=== PATIENT | male | born 1950 | race African-American/Black ===

== ENCOUNTER 2018-01-25 15:30 | Emergency (ER) | payer MEDICARE, OTHER ==
[~2018-01-25 15:30] MED LIST: ISOVUE-370 76%-LOCM 1 ML ONE
[2018-01-25 16:05] LABS: #Lymphocytes 0.7 thou/uL (1.20-3.40); #Monocytes 0.4 thou/uL (0.11-0.59); #Neutrophils 4.7 thou/uL (1.40-6.50); %Basophils 0.5 % (0.0-1.0); %Eosinophils 0.7 % (0.0-10.0); %Lymphocytes 11.3 % (21.0-51.0); %Monocytes 6.4 % (0.0-10.0); Hemoglobin 13.2 g/dL (14.0-18.0); Mean Corpuscular HGB CONC 35.6 g/dL (32.0-36.0); Mean Corpuscular Hemoglobin 36.3 pg (27.0-31.0); Mean Platelet Volume 7.4 fL (7.4-10.4); Platelet Count 197 thou/uL (130-400); RBC Distribution Width 12.3 % (11.5-14.5); Red Blood Cell (RBC) Count 3.63 mill/uL (4.70-6.10); White Blood Cell (WBC) Count 5.8 thou/uL (4.8-10.8)
[2018-01-25] MEDS ORDERED: Acetaminophen 500 MG TAB ONE ×2 (16:20)
[2018-01-25 16:28] LABS: ALT (SGPT) 14 U/L (8-55); AST (SGOT) 39 U/L (5-34); Albumin 3.7 g/dL (3.4-4.8); Alkaline Phosphatase 68 U/L (40-150); Anion Gap 17 mmol/L (10-20); BUN (Urea Nitrogen) 9 mg/dL (8.4-25.7); Bilirubin, Total 1.3 mg/dL (0.2-1.2); CK (CPK) 373 U/L (30-200); Calc. Creatinine Clearance 0 mL/min (70-130); Carbon Dioxide 19 mmol/L (23-31); Chloride 104 mmol/L (98-107); Estimated GFR-MDRD Greater than 90; Globulin 2.3 g/dL (2.4-3.5); Glucose 82 mg/dL (80-115); Lipase 21 U/L (8-78); Potassium 3.4 mmol/L (3.5-5.1); Sodium 137 mmol/L (136-145)
[2018-01-25 16:30] LABS: CKMB 2.8 ng/mL (0-6.6); Troponin I Less than 0.010 ng/mL (< 0.028)
--- NOTE | 2018-01-25 16:30 | RAD ---
RADIOGRAPH CHEST 1 VIEW: HISTORY: A 67-year-old male, status post syncope. FINDINGS: The thoracic aorta is tortuous and ectatic. There is no evidence of air space density, pneumothorax, or pulmonary edema. The lateral costophrenic angles are sharp. The cardiac size is normal. IMPRESSION: 1) No acute pulmonary findings. 2) Ectasia of thoracic aorta. jn [] POS: [facility]
--- NOTE | 2018-01-25 17:55 | RAD ---
RIGHT SHOULDER THREE VIEW SERIES: INDICATIONS: Post traumatic pain. FINDINGS: There is osteoarthritis without fracture or dislocation identified. IMPRESSION: No acute osseous abnormality of the right shoulder. POS: [facility]
--- NOTE | 2018-01-25 18:07 | CT ---
CT HEAD NONCONTRAST: INDICATIONS: Syncope. FINDINGS: No intracranial hemorrhage, mass effect, or midline shift. Mild chronic microvascular ischemic disea se is present. There is no acute fluid level of the imaged paranasal sinuses. IMPRESSION: 1. No acute intracranial hemorrhage or mass effect. 2. Mild chronic ischemic disease. POS: [facility]
--- NOTE | 2018-01-25 18:12 | CT ---
CTA THORAX WITH CONTRAST: DATE: 01/25/2018 TIME: 5:42 p.m. (Computed Tomographic Angiography, chest(noncoronary) with contrast material, and image post processi ng) (PE protocol) HISTORY: A 67-year-old male with elevated D-dimer and syncope. TECHNIQUE: IV injection of iodinated contrast: Isovue-370 100 mL. Scan acquisition timing attempted to coincide with iodinated contrast bolus reaching maximal density in pulmonary arteries. 3D MIP reconstructions. FINDINGS: There is a 6 x 4 x 5 mm noncalcified pulmonary nodule at the right middle lobe, close to the anterola teral pleural surface, unchanged since 03/26/2010, and therefore benign. No pulmonary edema, air spa ce opacity, bronchiectasis, pleural effusion, or pneumothorax. Severe DJD at the bilateral sternocla vicular joints. Trachea and major bronchi are patent and clear. Ectasia and tortuosity of the thora cic aorta without aneurysm. No cardiomegaly, pericardial effusion, mediastinal lymphadenopathy, or h ilar lymphadenopathy. No pulmonary thromboembolism. IMPRESSION: 1. No pulmonary thromboembolism. 2. No active disease. jn[] POS: [facility]
== END 2018-01-25 18:26 | disposition home or self-care (01) ==
LOC: ERS 15:30
DX: S49.91XA Unspecified injury of right shoulder and upper arm, initial encounter (principal); R55 Syncope and collapse; I10 Essential (primary) hypertension; F17.220 Nicotine dependence, chewing tobacco, uncomplicated; Z79.891 Long term (current) use of opiate analgesic; Z79.899 Other long term (current) drug therapy; Z79.82 Long term (current) use of aspirin; W19.XXXA Unspecified fall, initial encounter
CPT/HCPCS: 70450; 71045; 71275; 80053; 82553; 83690; 83880; 84484; 85025; 85379; 93005

== ENCOUNTER 2018-06-23 15:59 | Emergency (ER) | payer MEDICARE ==
[2018-06-23 16:49] LABS: #Basophils 0.1 thou/uL (0.0-0.2); #Eosinphils 0.2 thou/uL (0.0-0.7); #Lymphocytes 1.4 thou/uL (1.20-3.40); #Monocytes 0.3 thou/uL (0.11-0.59); #Neutrophils 5.4 thou/uL (1.40-6.50); %Basophils 1.1 % (0.0-1.0); %Eosinophils 2.3 % (0.0-10.0); %Lymphocytes 18.5 % (21.0-51.0); %Monocytes 4.1 % (0.0-10.0); %Neutrophils 74.1 % (42.0-75.0); Hemoglobin 15.3 g/dL (14.0-18.0); Mean Corpuscular HGB CONC 34.1 g/dL (32.0-36.0); Mean Corpuscular Hemoglobin 34.2 pg (27.0-31.0); Mean Platelet Volume 7.9 fL (7.4-10.4); Platelet Count 241 thou/uL (130-400); RBC Distribution Width 12.8 % (11.5-14.5); Red Blood Cell (RBC) Count 4.46 mill/uL (4.70-6.10); White Blood Cell (WBC) Count 7.3 thou/uL (4.8-10.8)
[2018-06-23 17:16] LABS: ALT (SGPT) 10 U/L (8-55); AST (SGOT) 29 U/L (5-34); Albumin 4.5 g/dL (3.4-4.8); Alkaline Phosphatase 59 U/L (40-150); BUN (Urea Nitrogen) 18 mg/dL (8.4-25.7); Bilirubin, Total 0.5 mg/dL (0.2-1.2); CK (CPK) 190 U/L (30-200); Calc. Creatinine Clearance 0 mL/min (70-130); Calcium 8.6 mg/dL (7.8-10.44); Carbon Dioxide 18 mmol/L (23-31); Chloride 104 mmol/L (98-107); Estimated GFR-MDRD 80; Globulin 2.8 g/dL (2.4-3.5); Glucose 132 mg/dL (80-115); Potassium 3.4 mmol/L (3.5-5.1); Protein, Total 7.3 g/dL (5.8-8.1); Sodium 138 mmol/L (136-145)
[2018-06-23 17:30] LABS: Anion Gap 19 mmol/L (10-20)
[2018-06-23 17:34] LABS: Acetaminophen Less than 6.0 mcg/mL (10.0-30.0); Alcohol 157 mg/dL (Less than 10); Salicylate Less than 8.0 mg/dL (15.0-30.0)
--- NOTE | 2018-06-23 17:37 | RAD ---
PORTABLE AP CHEST X-RAY 06/23/18 HISTORY: Hypoglycemia and chest pain. COMPARISON: 01/25/18. FINDINGS: The cardiac silhouette and pulmonary vasculature are within normal limits. The lungs are clear. There is suggested lucency within the left upper lung zone, but this is probably related to patient rotati on. There were no findings to suggest emphysematous changes on CTA of the chest on 01/25/18 and this is probably projectional. No other findings. Chest is overall stable from prior exam. IMPRESSION: No acute cardiopulmonary process. POS: [facility]
[2018-06-23 17:44] LABS: Bilirubin Negative (Negative); Blood, Urine Negative (Negative); Clarity CLEAR (Clear); Glucose, Urine (Dipstick) 250 mg/dL (Negative); Leukocyte Negative (Negative); Nitrite Negative (Negative); Protein, Urine (Dipstick) Negative (Neg-Trace); Specific Gravity, Urine 1.016 (1.002-1.036); Urobilinogen 0.2 mg/dL (0.2-1.0)
[2018-06-23 20:33] LABS: Lactic Acid 3.4 mmol/L (0.5-2.2)
== END 2018-06-23 20:43 | disposition home or self-care (01) ==
LOC: ERS 15:59
DX: E16.2 Hypoglycemia, unspecified (principal); F32.9 Major depressive disorder, single episode, unspecified; I10 Essential (primary) hypertension; F17.220 Nicotine dependence, chewing tobacco, uncomplicated; Z79.82 Long term (current) use of aspirin; Z79.899 Other long term (current) drug therapy
CPT/HCPCS: 36415; 36416; 71045; 80053; 80307; 81003; 82550; 83605; 84484; 85025; 93005; 94760

== ENCOUNTER 2018-07-13 21:09 | Emergency (ER) | payer MEDICARE ==
[2018-07-13] MEDS ORDERED: Ketorolac Tromethamine 30 MG/ML VIAL ONE (21:22)
[2018-07-13] MEDS ORDERED: Metoclopramide HCl 10 MG/2 ML VIAL ONE (21:22)
[2018-07-13] MEDS ORDERED: Dexamethasone 10 MG/ML VIAL ONE (21:22)
[2018-07-13 22:13] LABS: #Basophils 0.1 thou/uL (0.0-0.2); #Lymphocytes 0.7 thou/uL (1.20-3.40); #Monocytes 0.9 thou/uL (0.11-0.59); #Neutrophils 4.7 thou/uL (1.40-6.50); %Eosinophils 0.4 % (0.0-10.0); %Lymphocytes 10.4 % (21.0-51.0); %Monocytes 14.2 % (0.0-10.0); Hemoglobin 12.7 g/dL (14.0-18.0); Mean Corpuscular HGB CONC 34.5 g/dL (32.0-36.0); Mean Corpuscular Hemoglobin 34.6 pg (27.0-31.0); Mean Platelet Volume 9.3 fL (7.4-10.4); Platelet Count 165 thou/uL (130-400); RBC Distribution Width 12.4 % (11.5-14.5); Red Blood Cell (RBC) Count 3.66 mill/uL (4.70-6.10); White Blood Cell (WBC) Count 6.4 thou/uL (4.8-10.8)
[2018-07-13 22:29] LABS: Anion Gap 17 mmol/L (10-20); BUN (Urea Nitrogen) 8 mg/dL (8.4-25.7); CK (CPK) 102 U/L (30-200); Calc. Creatinine Clearance 0 mL/min (70-130); Calcium 9.4 mg/dL (7.8-10.44); Carbon Dioxide 19 mmol/L (23-31); Chloride 99 mmol/L (98-107); Estimated GFR-MDRD Greater than 90; Glucose 96 mg/dL (80-115); Sodium 132 mmol/L (136-145)
[2018-07-13] MEDS ORDERED: Potassium Chloride 20 MEQ TAB ONE (23:47)
== END 2018-07-13 23:46 | disposition home or self-care (01) ==
LOC: ERS 21:09
DX: S16.1XXA Strain of muscle, fascia and tendon at neck level, initial encounter (principal); E87.6 Hypokalemia; I10 Essential (primary) hypertension; F17.220 Nicotine dependence, chewing tobacco, uncomplicated; X58.XXXA Exposure to other specified factors, initial encounter
CPT/HCPCS: 80048; 82550; 85025; 96374; 96375; J1100; J1885; J2765

== ENCOUNTER 2018-07-28 09:00 | Outpatient (CLI) | payer MEDICARE ==
--- NOTE | 2018-07-28 10:13 | ULT ---
ULTRASOUND ABDOMEN: History: Right upper quadrant pain. FINDINGS: The liver, spleen, gallbladder, kidneys, and visualized portions of the pancreas and IVC are unremark able. No free fluid is seen. The common duct measures 4 mm. IMPRESSION: No significant abnormalities are identified. POS: [facility]
== END 2018-07-28 09:01 | disposition home or self-care (01) ==
LOC: BICULT 09:00
PROVIDERS: ATTEND Family Medicine
DX: R10.11 Right upper quadrant pain (principal)
CPT/HCPCS: 76700

== ENCOUNTER 2018-10-26 10:26 | Inpatient (IN) | payer MEDICARE ==
[2018-10-26 11:06] LABS: Hemoglobin 12.2 g/dL (14.0-18.0); Mean Corpuscular Hemoglobin 33.6 pg (27.0-31.0); Red Blood Cell (RBC) Count 3.62 mill/uL (4.70-6.10); White Blood Cell (WBC) Count 6.4 thou/uL (4.8-10.8)
[2018-10-26 11:07] LABS: #Lymphocytes 0.7 thou/uL (1.20-3.40); #Monocytes 0.6 thou/uL (0.11-0.59); %Basophils 0.5 % (0.0-1.0); %Eosinophils 0.4 % (0.0-10.0); %Lymphocytes 11.6 % (21.0-51.0); %Monocytes 9.4 % (0.0-10.0); %Neutrophils 78.1 % (42.0-75.0); Mean Corpuscular HGB CONC 32.6 g/dL (32.0-36.0); Platelet Count 221 thou/uL (130-400)
[2018-10-26 11:30] LABS: ALT (SGPT) Less than 7 U/L (8-55); AST (SGOT) 11 U/L (5-34); Albumin 3.7 g/dL (3.4-4.8); Alkaline Phosphatase 56 U/L (40-150); Anion Gap 17 mmol/L (10-20); BUN (Urea Nitrogen) 8 mg/dL (8.4-25.7); Bilirubin, Total 0.9 mg/dL (0.2-1.2); Calc. Creatinine Clearance 0 mL/min (70-130); Calcium 9.5 mg/dL (7.8-10.44); Carbon Dioxide 24 mmol/L (23-31); Chloride 96 mmol/L (98-107); Estimated GFR-MDRD Greater than 90; Globulin 3.2 g/dL (2.4-3.5); Glucose 97 mg/dL (80-115); Potassium 3.6 mmol/L (3.5-5.1); Protein, Total 6.9 g/dL (5.8-8.1); Sodium 133 mmol/L (136-145)
--- NOTE | 2018-10-26 11:31 | RAD ---
LEFT HAND 3 VIEWS: HISTORY: Patient fell on hand with swelling. FINDINGS: There are moderate osteoarthritic changes of the hand. These changes are particularly pronounced at the 1st carpometacarpal joint space and changes involving the proximal and distal interphalangeal magdalena nts. Osteophytic changes of the metacarpal heads are also seen. There is soft tissue swelling on th e dorsum of the hand. I do not see any definite fractures. IMPRESSION: Arthritic changes of the hand. No acute injury. POS: [facility]
--- NOTE | 2018-10-26 13:23 | CT ---
CT OF THE LEFT WRIST WITHOUT CONTRAST: INDICATION: History of fall with left wrist pain. COMPARISON: Left hand radiograph dated 10/26/2018. FINDINGS: No displaced fracture is demonstrated. There is moderate degenerative change at the DRUJ. There is se ruslan degenerative change at the first CMC joint. Carpal alignment appears within normal limits. There is diffuse osteopenia. IMPRESSION: 1. No definite acute fracture demonstrated. 2. Moderate distal radial ulnar joint and severe first carpometacarpal osteoarthrosis. Transcribed Date/Time: 10/26/2018 1:28 PM
[2018-10-26] MEDS ORDERED: Ketorolac Tromethamine 60 MG/2 ML VIAL ONE (13:30)
[2018-10-26] MEDS ORDERED: Lidocaine 1% PF 5 ML VIAL ONE (13:47)
[2018-10-26] MEDS ORDERED: ePHEDrine 50 MG/ML VIAL ONE (13:47)
[2018-10-26] MEDS ORDERED: Ondansetron PF 4 MG/2 ML Vial ONE (13:47)
[2018-10-26] MEDS ORDERED: PHENYLEPHRINE-NS 100 MCG/ML 10 ML SYRINGE ONE (13:47)
[2018-10-26] MEDS ORDERED: PROPOFOL 200 MG/20 ML VIAL ONE (13:47)
--- NOTE | 2018-10-26 15:41 | RAD ---
UPRIGHT PORTABLE CHEST: HISTORY: Preoperative evaluation. COMPARISON: 06/23/2018. FINDINGS: Heart size is normal. The lungs are clear. IMPRESSION: No acute intrathoracic disease. Atherosclerosis of the aorta with ectasia. POS: [facility]
[2018-10-26] MEDS ORDERED: Fentanyl 100 MCG/2 ML VIAL ONE (21:41)
[2018-10-26] MEDS ORDERED: Sodium Chloride 0.9% 30 ML ONE (21:42)
[2018-10-26] MEDS ORDERED: Bupivacaine PF 0.5% 30 ML VIAL ONE (21:42)
[2018-10-26] MEDS ORDERED: Bacitracin Zinc Ointment 30 gm TUBE ONE (21:43)
--- NOTE | 2018-10-26 22:45 | HP ---
CHIEF COMPLAINT: Left hand pain and swelling. HISTORY OF PRESENT ILLNESS: Bulmaro is a 68-year-old right-handed male, who was presented to [facility] Emergency room earlier this afternoon for swelling of the left hand with discomfort, which has been present and progressive since of last week. He has had no fevers, chills, nausea, vomiting. He also denies any constitutional symptoms. Pain has been progressive, but he does have a history of gout, but this seems to be a little bit different from his gout according to the patient. Laboratory evaluation performed by demonstrates a uric acid of 7.3, C-reactive protein 25.41, and a sedimentation rate of 37. White blood cell count was normal at 6.4. He has been able to use the hand effectively and there is a questionable history of fall, but this does not appear to be a sentinel event for the patient and his pain had more of an insidious onset, been present and progressive since onset. PAST MEDICAL HISTORY: Gout and hypertension. MEDICATIONS: Unknown presently. He does take medication for blood pressure. PHYSICAL EXAMINATION: VITAL SIGNS: Temperature is 98, blood pressure 158/106, pulse 84, respiratory rate 20, nonlabored, O2 saturation 100% on room air. GENERAL: He is alert and oriented to person, place, time, and situation, grossly nonfocal. He is appropriate and conversive with examiner. He does not appear toxic, appears quite comfortable. He has only had Toradol for pain. HEENT: Head is normocephalic and atraumatic. Pupils are equal, round, and reactive to light. Oropharynx is benign. NECK: Supple. CHEST: Clear to auscultation. HEART: Regular rate and rhythm. ABDOMEN: Benign. EXTREMITIES: Visual inspection of left upper extremity demonstrates him to have a fluctuance dorsal of the hand extending behind the metacarpals, carpals, and just past the distal radius by palpation. It is diffuse and fluctuant. He also has some fullness on the palmar side, but his digital excursion is limited by pain. Flexion and extension also limited by pain with poor tolerance for palpation. There are no breaks in the skin. Radial pulse is barely palpable, but he has good sensation in all digits of the extremity. The fullness is impressive dorsally and it is quite fluctuant. IMAGING STUDIES: Three-view of left hand demonstrates soft tissue swelling as noted and CT examination also suggests fullness with possible fluid collection just dorsal to the distal radioulnar joint. I see no air-fluid levels, I see no air pockets or soft tissue gasses. IMPRESSION: Suspect left dorsal fluctuant tenosynovitis. Possibility of septic process. PLAN: 1. The patient will be admitted to day stay versus the floor. I have also talked with Dr. Menard regarding operative intervention this afternoon. The risks, benefits, options, alternatives, and rationale for proceeding with incision, drainage, washout, exploration of the left dorsal hand and wrist have been explained in great detail with the patient. He is ready to proceed. All questions are answered. No guarantee of outcome has been stated or implied. 2. Please see orders. 3. EKG, chest x-ray preoperatively. Job ID: [id number] [facility]
[2018-10-26] MEDS ORDERED: Promethazine HCl 25 MG/ML VIAL IM PRN ×2 (23:30)
[2018-10-26] MEDS ORDERED: Ondansetron HCl/PF 4 MG/2 ML Vial IVP PRN ×2 (23:30)
[2018-10-26] MEDS ORDERED: Promethazine HCl 25 MG/ML VIAL SLOW IVP PRN ×2 (23:30)
[2018-10-26] MEDS ORDERED: Labetalol HCl 100 MG/20 ML VIAL ONE (23:31)
[2018-10-26 23:42] LABS: HBCM Index 0.07 S/CO (0-0.79); HBSAg Index 0.32 S/CO (0-0.99); HIV (1/2) Antibody/Antigen Non-Reactive (NonReactive); HIV 1/2 INDEX 0.38 S/CO (<1.00); Hep A IgM AB Non-Reactive (NonReactive); Hep A IgM S/CO 0.14 S/CO (0-0.79); Hep B Surf Ag Non-Reactive S/CO (NonReactive); Hep C IgG Ab Non-Reactive (NonReactive); Hep C Index 0.05 S/CO (0-0.79); Hepatitis B Core IgM Abs Non-Reactive (NonReactive)
[2018-10-27] MEDS ORDERED: Acetaminophen/Codeine 30-300mg Tablet PO PRN (00:01)
[2018-10-27] MEDS ORDERED: Ondansetron PF 4 MG/2 ML Vial IV PRN (00:01)
[2018-10-27] MEDS ORDERED: Acetaminophen 325 MG TAB PO PRN (00:01)
[2018-10-27] MEDS ORDERED: Bisacodyl 10 MG SUPP PR PRN (00:01)
[2018-10-27] MEDS ORDERED: Fentanyl 100 MCG/2 ML VIAL SLOW IVP PRN (00:01)
[2018-10-27] MEDS ORDERED: traMADol HCl 50 MG TAB PO PRN (00:01)
[2018-10-27] MEDS ORDERED: Morphine 4 MG/ML VIAL SLOW IVP PRN (00:01)
[2018-10-27] MEDS ORDERED: Milk Of Magnesia 30 ML UDCUP PO PRN (00:01)
[2018-10-27] MEDS ORDERED: hydrALAZINE 20 MG/ML VIAL ONE (00:07)
[2018-10-27] MEDS ORDERED: Meperidine HCl/PF 25 MG/ML VIAL IM PRN (00:08)
[2018-10-27] MEDS ORDERED: hydrALAZINE 20 MG/ML VIAL SLOW IVP PRN (00:09)
[2018-10-27] MEDS ORDERED: Enalaprilat Dihydrate 2.5 MG in Dextrose 5% in Water 50 ML IVPB PRN (00:11)
[2018-10-27] MEDS ORDERED: Communication Order-Pharmacy FS SCH (00:15)
[2018-10-27] MEDS: Sodium Chloride 0.9% 100 ML IV SCH ×2 (01:45→04:36)
[2018-10-27] MEDS: HYDROcodone/Acetaminophen 5/325 mg Tablet PO PRN ×4 (01:53→20:39)
[2018-10-27] MEDS ORDERED: Vancomycin HCl 1 GM in Premix Bag 1 BAG IVPB SCH (02:00)
[2018-10-27 03:30] VITALS: BMI 25.9
[2018-10-27] MEDS: Sodium Chloride 0.9% 1,000 ML IV SCH ×3 (04:34→21:58)
[2018-10-27] MEDS: Aspirin 81 mg Enteric Coated Tablet PO SCH ×2 (08:48→20:40)
[2018-10-27] MEDS ORDERED: TETANUS AND DIPHTHERIA TOX/PF 0.5 ML DISP.SYRIN IM SCH (09:00)
--- NOTE | 2018-10-27 10:47 | OP ---
DATE OF PROCEDURE: 10/26/2018 PREOPERATIVE DIAGNOSES: 1. Left wrist infectious arthritis. 2. Left wrist infectious synovitis. 3. Extensor tendon infectious tenosynovitis. PROCEDURES PERFORMED: 1. Left wrist arthrotomy with synovectomy, radical. 2. Left wrist tenosynovectomy, extensor tendon. 3. Left wrist abscess incision and drainage, open. SPECIMEN REMOVED: Gross purulence almost a total of approximately 15 cc's counting that which was around the tendon sheath. TOURNIQUET TIME: 36 minutes. BLOOD LOSS: 25 mL. DESCRIPTION OF PROCEDURE: The patient had successful general endotracheal anesthesia and the limb was prepped and draped. Indications were swelling, lassitude, poor wrist motion, and no history of anesthesia trauma, skin break or immunocompromise could be discerned. The patient then had the prepped and draped wrist elevated in the air, traction done by the manometer technician with the elbow at 90 degrees and in line. We then placed an 18-gauge needle into the 6U portal. There was gross purulence escaped only 1 mL. Thus, we felt that the patient would have a wrist joint problem indicative for arthrotomy needs. We exsanguinated the limb, inflated the tourniquet to 250 mmHg pressure, made a zigzag incision, began at Cielo tubercle, going distally to the level of the carpometacarpal joints. We then dissected it free, noticed that once we opened the retinaculum, there was a marked amount of purulence escaping from the center of the wrist. We then made the arthrotomy of the wrist in a T-shaped fashion, peeled it back and gross purulence escaped as soon as we opened it from the radiocarpal joint. Ulnocarpal joint had already been aspirated for purulence. We then distracted the joint capsules maximally, irrigated a total of 6 mL under high pressure and then total of 1 L placing the arthroscopic portal catheters deep in the wrist and irrigating and seeing the fluid escape with the irrigation. This was done from the radial and direct ulnar portals and had excellent success in clearing out the remainder of residual purulence. The patient had a partial injury to the dorsal scapholunate ligament indicative of probable infectious process. Once we had done this, we then placed catheters from outside-in after cutting over a hole from . Once the irrigation was completed, a Pollack catheter was then placed completely, it was used to irrigate remaining 10 mL on each of the two sites, radiocarpal and ulnocarpal and the joint was in excellent stability. We then sutured the Pollack catheters into place, one radiocarpal, one ulnocarpal and then irrigated one last time before obtaining final hemostasis with the tourniquet deflated, and then closed the wound with interrupted 4-0 nylon. A splint was applied, short-arm and this was tolerated well, neutral position. Job ID: [id number]
[2018-10-28] MEDS: HYDROcodone/Acetaminophen 5/325 mg Tablet PO PRN ×4 (02:34→21:26)
[2018-10-28] MEDS: Sodium Chloride 0.9% 1,000 ML IV SCH ×2 (07:16→16:35)
[2018-10-28] MEDS: Aspirin 81 mg Enteric Coated Tablet PO SCH ×2 (09:15→20:09)
[2018-10-28] MEDS ORDERED: Artificial Tear Sol 15 ML BOT EA EYE PRN (10:11)
[2018-10-28] MEDS: Vancomycin HCl 1.25 GM in Sodium Chloride 0.9% 250 ML 250 ML IVPB SCH (21:26)
--- NOTE | 2018-10-29 00:41 | CON ---
DATE OF CONSULTATION: 10/28/2018 REASON FOR CONSULTATION: Left wrist inflammatory arthropathy with tenosynovitis. 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 At this time, he is brought in to the hospital with new onset of left hand pain and swelling for the past week and half approximately. He did not document any fevers. No headaches. No visual symptoms, sore throat, odynophagia, or dysphagia. No cough, sputum production, or chest pain. No back pain. No abdominal pain or diarrhea. No genitourinary symptoms. No other joint symptoms at this time. PAST MEDICAL HISTORY: Alcoholism, atypical chest pain, hypertension, lumbosacral spine diskitis and osteomyelitis, gout. ALLERGIES: NONE. SOCIAL HISTORY: Former smoker. He used to drink heavily but quit. . Lives in [place]. He used to work in the oil field area. CURRENT MEDICATIONS: 1. Tylenol. 2. Hematite. 3. Ecotrin. 4. Dulcolax. 5. Enalapril. 6. P.r.n. hydralazine. 7. Magnesium. 8. Tramadol. PHYSICAL EXAMINATION: VITAL SIGNS: T-max 98.5, blood pressure 130/89, pulse 91, respirations 16, O2 saturation 96%. SKIN: Shows the area of surgical debridement with elliptical wound along the dorsal aspect of the left hand with a fresh base. The patient has a peripheral IV access and is voiding in the toilet. HEENT: No lymphadenopathy. Ocular movements conjugate. He has only a few remaining teeth in the lower mandible. Sclerae white. Pupils are equal. Conjunctivae normal. Nasal passages patent. Ear examination normal. NECK: Supple. No jugular venous distention. No carotid bruits. LUNGS: Symmetric air entry. HEART: S1 and S2. Regular rate. No S3 or S4. ABDOMEN: Soft. Not distended or tender. No ascites. No bladder distention. GENITALIA: No genital abnormalities. EXTREMITIES: Pulses are 1+ in dorsalis pedis, left hand and wrist with a bulky dressing. He is able to move extremities equally except for limitations imposed by inflammatory process in the left upper extremity. NEURO: He is awake, oriented. Follows commands. Speech is normal. Recollection is normal. DIAGNOSTIC STUDIES: LABORATORY RESULTS: White cell count 6.4, hemoglobin 12, platelets 221, 78% neutrophils. Sodium 133, creatinine 0.94. Normal liver profile. Albumin 3.7. Serology for HIV and hepatitis serology negative. Cultures from the samples thus far, Gram stain was negative, and no results and growth yet. I do not know if we are going to have pathology from this, but since there is no fluid, we may not be able to identify crystals, although he already had in the past such crystals identified in the other joints. ASSESSMENT: 1. History of alcoholism. 2. History of gout. 3. Prior lumbosacral spine osteomyelitis and diskitis, treated with resolution of inflammatory process. 4. Subacute onset of left hand and wrist pain with evidence of tenosynovitis and arthritis. DISCUSSION: The differential diagnosis includes gouty arthropathy, left wrist and hand versus an infectious arthropathy or one superimposed on the other. The deciding factor will be the results of cultures. If they are negative, I would treat this as a recurrence of his gouty arthropathy. Job ID: [id number]
[2018-10-29] MEDS ORDERED: diphenhydrAMINE 50 MG/ML VIAL IVP PRN (01:03)
[2018-10-29] MEDS: Sodium Chloride 0.9% 1,000 ML IV SCH ×2 (04:28→13:17)
[2018-10-29] MEDS: HYDROcodone/Acetaminophen 5/325 mg Tablet PO PRN ×3 (05:41→19:10)
[2018-10-29] MEDS: Aspirin 81 mg Enteric Coated Tablet PO SCH ×2 (08:22→20:24)
[2018-10-29] MEDS: Vancomycin HCl 1.25 GM in Sodium Chloride 0.9% 250 ML 250 ML IVPB SCH ×2 (08:22→20:24)
[2018-10-29] MEDS: Colchicine 0.6 MG TAB PO SCH (20:23)
[2018-10-30] MEDS: Sodium Chloride 0.9% 1,000 ML IV SCH ×2 (02:03→18:04)
[2018-10-30] MEDS: Aspirin 81 mg Enteric Coated Tablet PO SCH (08:49)
[2018-10-30] MEDS: Colchicine 0.6 MG TAB PO SCH (08:49)
[2018-10-30] MEDS: Vancomycin HCl 1.25 GM in Sodium Chloride 0.9% 250 ML 250 ML IVPB SCH (08:50)
--- NOTE | 2018-10-30 13:49 | PRG ---
DATE OF SERVICE: 10/30/2018 SUBJECTIVE: Mild pain in the left hand. No respiratory symptoms. No abdominal pain or diarrhea. He is voiding in the toilet. OBJECTIVE: VITAL SIGNS: Normal, except for elevation of systolic blood pressure. GENERAL: Awake, alert, and oriented. LUNGS: Symmetric, clear breath sounds. HEART: S1 and S2 regular rate. ABDOMEN: Soft, not distended. EXTREMITIES: Left hand with bulky dressing, which was not removed. LABORATORY DATA: White cell count 6.4, hemoglobin 12.2, platelets 221. Creatinine 0.94. Hepatitis and HIV serology negative. Microbiology thus far negative samples from wrist at 4 days. ASSESSMENT: Alcoholism, history of gout, gouty arthritis, prior lumbosacral spine osteo and diskitis and now subacute onset of left hand and wrist inflammatory changes, status post surgical I and D. DISCUSSION: At 4 days, cultures are negative. I do not believe he is going to return clerk to have a gouty arthropathy. If the final cultures are negative, we will discontinue antimicrobials and switch him to an anti-inflammatory or colchicine. Also, probably eventually we will have to start allopurinol. Job ID: [id number]
[2018-10-30 15:56] VITALS: TEMP 98.3
[2018-10-30] MEDS: HYDROcodone/Acetaminophen 5/325 mg Tablet PO PRN (16:16)
[2018-10-30 16:18] VITALS: BP 204/119
== END 2018-10-30 18:36 | disposition home or self-care (01) | DRG 506 ==
LOC: ERS 10:26 → SDC/OP 19:06 → OBSVTOIN 22:30 → SURG A 22:30
PROVIDERS: ADMIT Orthopaedic Surgery Hand Surgery; ATTEND Orthopaedic Surgery Hand Surgery
PROC: 0R9P0ZZ Drainage of Left Wrist Joint, Open Approach (ICD-10-PCS; principal; 2018-10-26)
DX: M65.142 Other infective (teno)synovitis, left hand (principal); M00.9 Pyogenic arthritis, unspecified; M10.9 Gout, unspecified; F10.20 Alcohol dependence, uncomplicated; I10 Essential (primary) hypertension; Z87.891 Personal history of nicotine dependence; Z79.899 Other long term (current) drug therapy
CPT/HCPCS: 36415; 71045; 80053; 80074; 80202; 83605; 84550; 85025; 85652; 86140; 87070; 87205; 87389; 93005; 96372; C1758; J0360; J1200; J1885; J2001; J2405; J2704; J3010; J3370; J3490; J7050; J7070; S0020

== ENCOUNTER 2018-11-02 16:39 | Observation (INO) | payer MEDICARE ==
[~2018-11-02 16:39] MED LIST changes: +Dexamethasone 20 MG/5 ML VIAL ONE; -ISOVUE-370 76%-LOCM 1 ML ONE; +Ketorolac Tromethamine 30 MG/ML VIAL ONE; +Lidocaine 1% PF 5 ML VIAL ONE; +Ondansetron PF 4 MG/2 ML Vial ONE; +PHENYLEPHRINE-NS 100 MCG/ML 10 ML SYRINGE ONE; +PROPOFOL 200 MG/20 ML VIAL ONE
[2018-11-02] MEDS ORDERED: Bacitracin Zinc Ointment 30 gm TUBE ONE (22:09)
[2018-11-02] MEDS ORDERED: Bupivacaine PF 0.5% 30 ML VIAL ONE (22:09)
[2018-11-02] MEDS ORDERED: Sodium Chloride 0.9% 30 ML ONE (22:10)
[2018-11-02] MEDS ORDERED: Fentanyl 100 MCG/2 ML VIAL ONE (22:17)
[2018-11-02] MEDS ORDERED: Promethazine HCl 25 MG/ML VIAL IM PRN (22:33)
[2018-11-02] MEDS ORDERED: HYDROcodone/Acetaminophen 5/325 mg Tablet PO PRN (22:33)
[2018-11-02] MEDS ORDERED: Ondansetron PF 4 MG/2 ML Vial IV PRN (22:33)
[2018-11-02] MEDS ORDERED: TETANUS AND DIPHTHERIA TOX/PF 0.5 ML DISP.SYRIN IM SCH (22:45)
[2018-11-02] MEDS ORDERED: Morphine 4 MG/ML VIAL SLOW IVP PRN (22:45)
[2018-11-03] MEDS ORDERED: Promethazine HCl 25 MG/ML VIAL IM PRN (00:03)
[2018-11-03] MEDS ORDERED: Ondansetron HCl/PF 4 MG/2 ML Vial IVP PRN (00:03)
[2018-11-03] MEDS ORDERED: Promethazine HCl 25 MG/ML VIAL SLOW IVP PRN (00:03)
[2018-11-03] MEDS ORDERED: Fentanyl 100 MCG/2 ML VIAL ONE ×2 (00:13→00:41)
--- NOTE | 2018-11-03 00:59 | OP ---
DATE OF PROCEDURE: 11/02/2018 PREOPERATIVE DIAGNOSIS: Open wound, left wrist joint after arthrotomy, 8 cm. FINDINGS: No gross infection, small hematoma subcutaneously. PROCEDURES PERFORMED: 1. Debridement of joint, 02362 level. 2. Debridement of wound, 59414 level. 3. Closure of wound, 8 cm in layers, [id number]. Findings, again small amount of clot without any exudate or inflammatory fluid. DESCRIPTION OF PROCEDURE: After successful general endotracheal anesthesia, the limb was prepped and draped. We identified the site and side. We gave the patient a block around his 8 cm long by 1.5 cm wide wound using a total of 30 mL of 0.5% Marcaine. We then exsanguinated the limb, inflated tourniquet to 250 mmHg pressure and then were able to visualize the joint. There was a hematoma subcutaneously on top of the retinaculum. The tendons were pulled back with loop between the tendons and joint capsule and then we looked inside the joint capsule. From here, it could be seen that there was a small 5 mm hole made in the dorsal scapholunate ligament probably with the initial incision, so once we had finished debriding the wound using the following techniques: 1. Excisional technique. 2. Combination of Hepler blade, tenotomy scissors, Adson's retractors of different types and we found no gross purulence. Debridement is now completed down to including the joint spaces. No gross purulence seen. No further hematoma, so we finished the irrigation with 3 L normal saline and Pulsavac pressure. We then deflated the tourniquet and obtained hemostasis. We closed the 5 mm dorsal scapholunate ligament area with 3-0 Prolene interrupted [id number] pattern. We closed the capsule with the same 3-0 Prolene interrupted [id number] pattern. We then closed the retinaculum using same in 4-0 Prolene. Then, the hemostasis was confirmed with 3 minutes of thrombin-soaked Gelfoam placed on the wound edges to completely dry. We closed the subcutaneous tissue and deep dermis with a running 4-0 Monocryl and the skin reapproximated with 3-0 nylon interrupted simple pattern. The patient then left the operating room without a bulky dressing. No evidence of anesthetic or operative complication. Job ID: [id number]
[2018-11-03 01:23] VITALS: BMI 26.7
[2018-11-03] MEDS: Ketorolac Tromethamine 30 MG/ML VIAL IVP SCH ×2 (01:30→05:09)
[2018-11-03] MEDS ORDERED: Vancomycin HCl 1.5 GM in Sodium Chloride 0.9% 250 ML 300 ML IVPB SCH ×2 (01:30→06:00)
[2018-11-03] MEDS ORDERED: Clindamycin/D5W 600 MG in Premix Bag 1 BAG IVPB SCH (06:00)
[2018-11-03] MEDS ORDERED: Colchicine 0.6 MG TAB PO SCH (06:00)
[2018-11-03 07:49] VITALS: BP 149/79; TEMP 97.9
[2018-11-03] MEDS ORDERED: Aspirin 81 mg Enteric Coated Tablet PO SCH (09:00)
== END 2018-11-03 11:52 | disposition home or self-care (01) ==
LOC: SDC 16:39 → SURG A 22:33
PROVIDERS: ADMIT Orthopaedic Surgery Hand Surgery; ATTEND Orthopaedic Surgery Hand Surgery
PROC: 0JBH0ZZ Excision of Left Lower Arm Subcutaneous Tissue and Fascia, Open Approach (ICD-10-PCS; principal; 2018-11-02)
DX: M96.840 Postprocedural hematoma of a musculoskeletal structure following a musculoskeletal system procedure (principal); I10 Essential (primary) hypertension; M10.9 Gout, unspecified; Z79.2 Long term (current) use of antibiotics; Z79.899 Other long term (current) drug therapy
CPT/HCPCS: 25040; 96365; 96367; 96375; G0378; J1100; J1885; J2001; J2405; J2704; J3010; J3370; J3490; J7050; S0020

== ENCOUNTER 2018-12-20 19:30 | Emergency (ER) | payer MEDICARE ==
--- NOTE | 2018-12-20 20:04 | RAD ---
RIGHT FOREARM TWO VIEWS: HISTORY: Pain and swelling. Fall. FINDINGS: No fracture. No cortical irregularity. No periosteal reaction. IMPRESSION: No fracture. POS: [facility]
[2018-12-20] MEDS ORDERED: Ketorolac Tromethamine 60 MG/2 ML VIAL ONE (21:04)
--- NOTE | 2018-12-20 21:32 | RAD ---
EXAM: Right hand 3 views: HISTORY: Swelling from an injury from a fall. COMPARISON: None FINDINGS: Soft tissue swelling of the dorsal hand and wrist. Arthrosis and degenerative changes primarily of the wrist. Minimal deformity of the distal ulna probably related to old trauma. Degenerative changes. No acute fracture or dislocation or other significant acute osseous abnormality. IMPRESSION: Degenerative and osteoarthrosis changes without acute fracture or dislocation.
== END 2018-12-20 23:43 | disposition home or self-care (01) ==
LOC: ERS 19:30
DX: S63.501A Unspecified sprain of right wrist, initial encounter (principal); F17.220 Nicotine dependence, chewing tobacco, uncomplicated; W18.30XA Fall on same level, unspecified, initial encounter
CPT/HCPCS: 96372; J1885

== ENCOUNTER 2020-10-18 18:23 | Emergency (ER) | payer MEDICARE | END 2020-10-18 20:30 | disposition home or self-care (01) | LOC: ERS 18:23 | DX: S09.90XA Unspecified injury of head, initial encounter (principal); I10 Essential (primary) hypertension; F17.220 Nicotine dependence, chewing tobacco, uncomplicated; W19.XXXA Unspecified fall, initial encounter | CPT/HCPCS: 70450 ==

== ENCOUNTER 2021-05-24 15:25 | Emergency (ER) | payer MEDICARE | END 2021-05-24 17:39 | disposition home or self-care (01) | LOC: ERS 15:25 | DX: S00.83XA Contusion of other part of head, initial encounter (principal); I10 Essential (primary) hypertension; F17.220 Nicotine dependence, chewing tobacco, uncomplicated; W19.XXXA Unspecified fall, initial encounter | CPT/HCPCS: 70450; 70486; 72125; 90471; 93005 ==

== ENCOUNTER 2022-03-21 16:27 | Emergency (ER) | payer MEDICARE, SELFPAY ==
[2022-03-21] MEDS ORDERED: Lidocaine 2% PF 5 ML VIAL ONE (17:40)
[2022-03-21] MEDS ORDERED: Morphine 4 MG/ML VIAL ONE (17:40)
[2022-03-21 21:29] LABS: RBC Count-Automated (BF) 762 /cu.mm; WBC/Nucleated-Auto (BF) 15730 /cu.mm
[2022-03-21 21:37] LABS: BF Color Yellow; Body Fluid Source Synovial Fluid; Clarity Clear (Clear); Tube # 1
[2022-03-21 21:44] LABS: BF Segmented Neutrophils 75 %; Cell Count Non Hematic 23 %; Lymphocytes 2 %
== END 2022-03-21 23:21 | disposition home or self-care (01) ==
LOC: ERS 16:27
DX: M17.11 Unilateral primary osteoarthritis, right knee (principal); M25.461 Effusion, right knee; I10 Essential (primary) hypertension; F17.220 Nicotine dependence, chewing tobacco, uncomplicated
CPT/HCPCS: 20610; 82945; 84157; 85060; 87070; 87077; 87186; 87205; 89051; 89060; 96372; J2001; J2270

== ENCOUNTER 2024-06-26 23:25 | Emergency (ER) | payer OTHER ==
[~2024-06-26 23:25] MED LIST changes: -Dexamethasone 20 MG/5 ML VIAL ONE; +Iopamidol-370 76% 500 ML MDV (1 ML CHARGE) ONE; -Ketorolac Tromethamine 30 MG/ML VIAL ONE; -Lidocaine 1% PF 5 ML VIAL ONE; -Ondansetron PF 4 MG/2 ML Vial ONE; -PHENYLEPHRINE-NS 100 MCG/ML 10 ML SYRINGE ONE; -PROPOFOL 200 MG/20 ML VIAL ONE
[2024-06-27 00:25] LABS: Hemoglobin 9.9 g/dL (14.0-18.0); Mean Corpuscular Hemoglobin 32.7 pg (27.0-31.0); Mean Platelet Volume 10.3 fL (7.4-10.4); Platelet Count 229 10x3/uL (130-400); RBC Distribution Width 14.6 % (11.5-14.5); Red Blood Cell (RBC) Count 3.03 mill/uL (4.70-6.10)
[2024-06-27 00:37] LABS: Lipase 27 U/L (8-78)
[2024-06-27 00:38] LABS: INR-International Normal Ratio 1.1; Prothrombin Time 14.5 sec (12.0-14.7)
[2024-06-27 00:39] LABS: ALT (SGPT) 7 U/L (8-55); AST (SGOT) 21 U/L (5-34); Acetaminophen Less than 10 mcg/mL (Less than 10); Albumin 3.3 g/dL (3.4-4.8); Alcohol 316.7 mg/dL (Less than 10); Alkaline Phosphatase 59 U/L (40-110); Anion Gap 15 mmol/L (10-20); BUN (Urea Nitrogen) 14 mg/dL (8.4-25.7); Bilirubin, Total 0.5 mg/dL (0.2-1.2); CK (CPK) 240 U/L (30-200); Calc. Creatinine Clearance 0 mL/min (70-130); Calcium 8.5 mg/dL (7.8-10.44); Carbon Dioxide 21 mmol/L (23-31); Chloride 111 mmol/L (98-107); Estimated GFR 77; Globulin 3.5 g/dL (2.4-3.5); Glucose 81 mg/dL (83-110); PTT 29.2 sec (22.9-36.1); Potassium 3.5 mmol/L (3.5-5.1); Protein, Total 6.8 g/dL (5.8-8.1); Salicylate Less than 8.0 mg/dL (Less than 8.0); Sodium 143 mmol/L (136-145)
[2024-06-27 00:41] LABS: Troponin I Less than 0.010 ng/mL (< 0.028)
[2024-06-27 00:44] LABS: Eosinophils 4 % (0-10); Hypochromia SLIGHT = 6-15 cells HPF (0-5); Lymphocytes 54 % (21-51); Macrocytosis SLIGHT = 6-15 cells HPF (0-5); Monocytes 2 % (0-10); Neutrophil 40 % (42-75); Platelet Adequacy Comment Platelets Normal; Polychromasia SLIGHT = 2-3 cells HPF (0-2)
[2024-06-27] MEDS ORDERED: Morphine 4 MG/ML VIAL ONE (02:15)
[2024-06-27] MEDS ORDERED: Fluorescein Opthalmic Strip ONE (03:51)
[2024-06-27] MEDS ORDERED: Proparacaine 0.5% Opth 15 ML BOT ONE (03:51)
== END 2024-06-27 07:32 | disposition home or self-care (01) ==
LOC: ERS 23:25
DX: H11.32 Conjunctival hemorrhage, left eye (principal); F10.129 Alcohol abuse with intoxication, unspecified; I10 Essential (primary) hypertension; F17.220 Nicotine dependence, chewing tobacco, uncomplicated; W19.XXXA Unspecified fall, initial encounter; Y92.009 Unspecified place in unspecified non-institutional (private) residence as the place of occurrence of the external cause
CPT/HCPCS: 36415; 70450; 70486; 71045; 71260; 72125; 74177; 80053; 80307; 82550; 83690; 84484; 85025; 85610; 85730; 93005; J2272; Q9967